=== PATIENT | female | born 1995 | race Caucasian/White ===

== ENCOUNTER 2016-08-21 03:20 | Outpatient (CLI) | payer OTHER, MEDICAID ==
[~2016-08-21] VITALS: Ht 170.2 cm; Wt 70.0 kg
[~2016-08-21 03:20] MED LIST: ADDERALL30 MG PO; AMBIEN 10MG10 MG PO; CATAPRES; CONCERTA18 MG PO; MOTRIN 600600 MG/TAB PO; MOTRIN 800800 MG/TAB PO; NO HOME MEDICATIONS; OMNICEF 300MG300 MG PO; PERCOCET 325 MG1 TA2 PO; TYLENOL #3 301 UDTAB PO; TYLENOL 500MG500 MG PO; WELLBUTRIN PO
[2016-08-21 03:40] VITALS: BP 121/74; PULSE 98; TEMP 98
[2016-08-21] MEDS ORDERED: PRENATAL1 TA7 PO (03:54)
[2016-08-21 03:55] VITALS: BP 121/74; PULSE 98; TEMP 98
== END 2016-08-21 04:20 | disposition home or self-care (01) ==
LOC: LDRO 03:20
DX: O26.892 Other specified pregnancy related conditions, second trimester (principal); M54.89 Other dorsalgia; O99.332 Smoking (tobacco) complicating pregnancy, second trimester; F17.210 Nicotine dependence, cigarettes, uncomplicated; Z3A.26 26 weeks gestation of pregnancy